=== PATIENT | female | born 1960 | race Caucasian/White ===

== ENCOUNTER 2017-08-05 12:51 | Outpatient (CLI) | payer OTHER, BC | END 2017-08-05 12:52 | disposition home or self-care (01) | DRG 556 | LOC: CONVCARE 12:51 | PROVIDERS: ATTEND Orthopaedic Surgery | DX: M25.511 Pain in right shoulder (principal); G56.21 Lesion of ulnar nerve, right upper limb | CPT/HCPCS: 73030 ==